=== PATIENT | male | born 1965 | race Caucasian/White ===

== ENCOUNTER 2020-12-11 07:20 | Emergency (ER) | payer OTHER, SELFPAY ==
--- NOTE | ~2020-12-11 | US_ITS ---
EXAMINATION: US SCROTUM CLINICAL INFORMATION: Left-sided pain and swelling. COMPARISON: Scrotal ultrasound on 05/23/2020. TECHNIQUE: A sonogram of the scrotum was performed assessing bill-scale appearance and color Doppler flow. Spectral Doppler analysis of the arterial and venous flow were performed in the testes bilaterally. FINDINGS: RIGHT TESTICLE: Size: 3.7 x 1.7 x 2.1 cm, volume 6.7 mL. Testicular Echotexture: Homogeneous. Focal parenchymal lesions: None. Doppler analysis: Normal. Epididymis: There is a small epididymal head cyst measuring 4 mm. The epididymis is otherwise normal appearing. Hydrocele: None. Varicocele: None. LEFT TESTICLE: Size: 3.3 x 2.0 x 2.2 cm, volume 7.4 mL. Testicular Echotexture: Homogeneous. Focal parenchymal lesions: None. Doppler analysis: Normal. Epididymis: There is a small epididymal head cyst measuring 4 mm. The epididymal tail appears enlarged, heterogeneous and hypervascular suggesting inflammation. Hydrocele: Moderate recurrent hydrocele. Varicocele: None. US/US scrotum IMPRESSION: There is heterogeneous enlargement and hypervascularity of the left epididymal tail concerning for epididymitis. Moderate left hydrocele. Findings discussed with Dr. Barlow via telephone at 9:05 AM on 12/11/2020.
[2020-12-11 07:22] VITALS: BP 157/85; PULSE 77; RESP 16; TEMP 36.6; O2SAT 97; BMI 30.4
--- NOTE | 2020-12-11 07:33 | ED_ITS ---
HPI - Male Genitourinary General Chief complaint: Abdominal Pain Stated complaint: GROIN PAIN WORK RELATED Time Seen by Provider: 12/11/20 07:27 Source: patient Mode of arrival: ambulatory Limitations: no limitations History of Present Illness HPI Narrative: 55 yo male with no sig PMH other than work related injury resulting in large left hydrocele - was repaired in August by a Dr. Kimbrough but notes the area still swells and now it radiates up to his abdomen and left leg at times, worse with standing, states Dr. Kimbrough is retiring. He has had a CT scan as well in the past showing no hernia. MD Complaint: testicle pain and testicle swelling Onset (ago): month(s) Duration: intermittent and progressively worsening Location: left testicle Severity: moderate Quality: aching Relieving factors: none Exacerbating factors: palpation and movement Context: recent surgery Associated symptoms: Reports other (pain spreads to abdomen and leg) Related Data Previous Rx's Medication Instructions Recorded hydrocodone-acetaminophen 1 tab PO Q6H PRN #12 tab 12/11/20 levofloxacin 500 mg PO DAILY 7 Days #7 tab 12/11/20 Allergies Allergy/AdvReac Type Severity Reaction Status Date / Time No Known Allergies Allergy Unverified 03/03/20 15:17 [No Known Allergies*] Review of Systems Review of Systems: Constitutional : No Weight loss, No Fever, No Chills ENT/Mouth : No sore throat, No Rhinorrhea Eyes: No Swelling, No Redness Cardiovascular : No Chest Pain, No SOB, NoEdema Respiratory : No Cough, No Sputum, No Wheezing Gastrointestinal : no Nausea, no Vomiting, positive Diarrhea, positive abdominal Pain, No Hematochezia, No Melena Genitourinary : No Dysuria, No Urinary Frequency, No Hematuria, No Urgency , pos groin pain Musculoskeletal : No joint pain, No Myalgias, No Joint Swelling Skin : No Skin Lesions, No rash Neuro : No Weakness, No Numbness, No Dizziness, No Headache Psych : No Anxiety/Panic, No Depression Heme/Lymph: No Bruising, No Lymphadenopathy Endocrine : No Polyuria, No Polydipsia All other systems reviewed and are negative. [facility]LY [facility] Past Medical History Attestation statement: The following information was validated with the patient. Medical History (Updated 12/11/20 @ 09:02 by Wilma Barlow DO) No significant past medical history Social History Social History (Updated 12/11/20 @ 07:43 by Wilma Barlow DO) Alcohol intake: never Patient Tobacco Use Status: Never used Tobacco Use of substances other than those prescribed or required for medical reasons: No Advance Directives: No Advance Directives Information Provided: No Physical Exam Vital Signs: Vital Signs: Last Vital Signs Temp 98 F 12/11/20 07:22 Pulse 77 12/11/20 07:22 Resp 16 12/11/20 07:22 BP 157/85 H 12/11/20 07:22 Pulse Ox 97 12/11/20 07:22 Body Mass Index 30.4 Appearance: Alert. Oriented X3. No acute distress. Eyes: Pupils equal, round and reactive to light. ENT: Pharynx normal. Neck: Normal inspection. Neck supple. CVS: Normal heart rate and rhythm. Pulses normal. Respiratory: No respiratory distress. Breath sounds normal. Abdomen: Soft and nontender. : when laying flat no obvious swelling/discoloration, when standing L sided scrotum becomes more swollen, no hernia defect noted Skin: Skin warm and dry. Normal skin color. Normal skin turgor. Extremities: No lower extremity edema. No calf ttp Neuro: Oriented X 3. No motor deficit. No sensory deficit. Course Course Course Narrative: call from Radiology 857am - scrotal US recurrent L hydrocele ?heterogeneous enlargement of epidydimitis ? recurrent hydrocele, will refer to Urology start on levofloxacin pain medications MDM - Male Genitourinary MDM Narrative Medical decision making narrative: 55 yo male with no sig PMH other than work related injury resulting in large left hydrocele - was repaired in August by a Dr. Kimbrough but notes the area still swells and now it radiates up to his abdomen and left leg at times, worse with standing, states Dr. Kimbrough is retiring. He has had a CT scan as well in the past showing no hernia. At this time will obtain US to evaluate area - unsure if this is recurrent hydrocele vs hernia - s ymptoms x 3 months Discharge Plan Discharge Clinical Impression: Acute hydrocele, Epididymitis Patient Disposition: Home, Self-Care Instructions: Epididymitis (ED), Hydrocele (ED) Additional Instructions: return to ED for any worsening symptoms or concerns Prescriptions: New hydrocodone-acetaminophen 5-325 mg tablet 1 tab PO Q6H PRN (Reason: pain) Qty: 12 RF: 0 levofloxacin 500 mg tablet 500 mg PO DAILY 7 Days Qty: 7 RF: 0 Referrals: Eligio Nieves MD [Physician] - 2 days (call for appointment) Stand Alone Forms: Work/School Release
== END 2020-12-11 09:08 | disposition home or self-care (01) ==
PROVIDERS: Emergency Provider Emergency Medicine
DX: N43.3 Hydrocele, unspecified (principal); N45.1 Epididymitis
CPT/HCPCS: 76870; 99284

== ENCOUNTER → 2020-12-20 10:44 | Outpatient (BNVA) | payer OTHER, SELFPAY | PROVIDERS: Visit Provider Urology | DX: N45.1 Epididymitis (principal); S39.91XA Unspecified injury of abdomen, initial encounter | CPT/HCPCS: 99202 ==

== ENCOUNTER → 2021-01-27 10:08 | Outpatient (BNVA) | payer OTHER, SELFPAY | PROVIDERS: Visit Provider Urology | DX: N43.3 Hydrocele, unspecified (principal); S39.91XA Unspecified injury of abdomen, initial encounter; X58.XXXA Exposure to other specified factors, initial encounter; Y93.9 Activity, unspecified; Y92.9 Unspecified place or not applicable; Y99.8 Other external cause status | CPT/HCPCS: 20552; 99212 ==

== ENCOUNTER → 2021-02-28 10:32 | Outpatient (BNVA) | payer OTHER, SELFPAY | PROVIDERS: Visit Provider Urology | DX: S39.91XD Unspecified injury of abdomen, subsequent encounter (principal) | CPT/HCPCS: 99212 ==

== ENCOUNTER 2021-04-20 10:00 | Outpatient (RCR) | payer OTHER, SELFPAY ==
--- NOTE | 2021-02-13 15:05 | MHC.PT.EP ---
[facility] [place] [facility] [place] [facility] [place] [facility] [address] Deandra Lozano [address] [phone] F: [phone] F: [phone] F: [phone] F: [phone] Physical Therapy Plan of Care Date of Evaluation: Date of Surgery: Diagnosis: unspecified abdominal injury. Assessment: The patient arrived reporting scrotal pain and groin pain that began after a work related injury. The patient has pain with AROM of the groin, IR, ER. He has functional limitations with stairs, squatting, bending, and lifting due to pain. He had no pain to contract his pelvic floor. He denies any Bowel or bladder disturbance. He has no pain with sexual function/activity. He is showing signs of possible nerve related pain whether it is the obturator nerve or pudendal nerve. He had some pain provocation with pressure at the proximal adductor alirio attachment. I issued a few neural glides and he was given a few gentle stretches. At this time internal assessment of his pelvic floor is not indicated. He is a good candidate for skilled Physical Therapy. Frequency and Duration: The patient will be seen 2x/week x 4 weeks. Short Term Goals: 1. pt to be able to resume bed mobility, and personal hygiene tasks without pain with modifications as necessary. 2. pt to know his initial HEP to help with carryover and compliance. Director Public Goals: 1. Pt to be able to resume all functional activities without limiting pain with modifications as necessary. 2. Pt to be able to be independent with HEP to address his pain and impairments. 3. pt to be able to walk community distances without limiting pain. Treatment Plan: Modalities to reduce pain, spasms and effusion. Manual therapy to restore motion and function. Therapeutic exercise to improve strength and flexibility. Neuromuscular re-education for posture and balance. Therapeutic activities to return to functional activities of daily living. Electronically signed by: Daria Mackay PT DPT Please sign and return to therapist. Thank you for your referral.
--- NOTE | 2021-04-20 15:37 | MHC.PT.DC ---
[facility] [place] [facility] [place] [facility] [place] [facility] [address] Deandra Lozano [address] [phone] F: [phone] F: [phone] F: [phone] F: [phone] Physical Therapy Discharge Report Diagnosis: unspecified abdominal injury. Date of Surgery: Date of Evaluation: 02/13/21 Date of Discharge: 04/20/21 Treatments to Date: 6 Cancellations to Date: No Shows to Date: Discharge Status: Independent with HEP Recommend MD Follow-up Discharge Summary: At this point skilled PT is not helping the patient. I requested and received an office visit note from Dr. Benson Berrios a surgeon from [facility] in [facility]. He explained he has an inguinal hernia on the left side, and he will be following up with him at this point. He is being d/c from skilled PT at this time. He was educated on ways to reduce strain on the abdomen such as log rolling, breathing out with bending. Avoidance of lifting, reaching, twisting. Pt was discharged from skilled PT at this point. He may return with a new order at a later time based on the treatment he receives. Electronically signed by: Daria Mackay PT DPT Please sign and return to therapist. Thank you for your referral.
== END 2021-04-20 15:34 | disposition home or self-care (01) ==
LOC: HO.PT 10:00
PROVIDERS: Visit Provider Urology
DX: S39.91XD Unspecified injury of abdomen, subsequent encounter (principal)
CPT/HCPCS: 97033; 97035; 97110; 97112; 97116; 97140; 97162

== ENCOUNTER 2021-11-02 08:00 | Outpatient (RCR) | payer OTHER, SELFPAY | END 2022-01-19 14:50 | disposition home or self-care (01) | LOC: HO.PT 08:00 | PROVIDERS: PCP Pediatrics; Visit Provider Nurse Practitioner | DX: K40.30 Unilateral inguinal hernia, with obstruction, without gangrene, not specified as recurrent (principal) | CPT/HCPCS: 97110; 97112; 97116; 97140; 97162; 97530 ==

== ENCOUNTER 2022-02-24 05:29 | Emergency (ER) | payer MEDICAID, SELFPAY ==
[2022-02-24 06:14] VITALS: BP 143/72; PULSE 78; RESP 14; TEMP 36.4; O2SAT 99; BMI 33.0
--- NOTE | 2022-02-24 07:57 | ED_ITS ---
HPI - General Adult General Chief complaint: Skin/Abscess/Foreign Body Stated complaint: left eye swollen, rash Time Seen by Provider: 02/24/22 07:50 Source: patient Mode of arrival: ambulatory Limitations: no limitations History of Present Illness HPI narrative: 56-year-old male otherwise healthy came in for having left ear pain, left facial pain, swelling of the left eyelid and rash for over a week. Started with left ear pain then feeling burning and itching sensation on the left side of his scalp and upper face now is involving his left upper eyelid, patient declined any history of diabetes her recent use of steroid, no exposure to a sick contact. Related Data Previous Rx's Medication Instructions Recorded hydrocodone 5 mg-acetaminophen 325 1 tab PO Q6H PRN pain #12 tabs 12/11/20 mg tablet levofloxacin 500 mg tablet 500 mg PO DAILY 7 days #7 tabs 12/11/20 naproxen 500 mg tablet (Naprosyn) 500 mg PO Q12H PRN pain 30 days 12/20/20 #60 tabs prednisone 20 mg tablet 20 mg PO BID #10 tabs 02/24/22 valacyclovir 1 gram tablet 1,000 mg PO TID #7 tabs 02/24/22 (Valtrex) Allergies Allergy/AdvReac Type Severity Reaction Status Date / Time No Known Allergies Allergy Verified 02/28/21 10:49 [No Known Allergies*] Review of Systems Review of Systems: All other systems are reviewed and are negative Constitutional: Reports as per HPI and Reports no additional constitutional complaints Eyes: Reports as per HPI and Reports no additional eye complaints Reports system reviewed and no additional complaints, except as documented Cardiovascular: Reports as per HPI and Reports no additional cardiovascular complaints Respiratory: Reports as per HPI and Reports no additional respiratory complaints Gastrointestinal: Reports as per HPI and Reports no additional gastrointestinal complaints Genitourinary: Reports no additional female genitourinary complaints Musculoskeletal: Reports no additional musculoskeletal complaints Skin/Breast: Reports system reviewed and no additional complaints, except as docu Psychiatric: Reports no additional psychiatric complaints Endocrine: Reports no additional endocrine complaints Hematologic/Lymphatic: Reports no additional hematologic/lymphatic complaints Allergic/Immunologic: Reports no additional allergic/immunologic complaints Reports system reviewed and no additional complaints, except as documented and Reports Abnormal speech present [facility] Past Medical History Medical History No significant past medical history Social History Social History Alcohol intake: never Patient Tobacco Use Status: Never used Tobacco Advance Directives: No Advance Directives Information Provided: No Physical Exam ED Vital Signs: Vital Signs - 24 hr 02/24/22 06:14 Temperature 97.6 F Pulse Rate 78 Respiratory Rate 14 Blood Pressure 143/72 H Pulse Oximetry 99 Oxygen Delivery Method Room Air BMI result Body Mass Index 33.0 Vital signs have been reviewed as appeared to be correct. Blood pressure normal. Heart rate normal. Respiration rate normal. Temperature normal. Oxygen saturation normal. Appearance: Alert. Oriented X3. No acute distress. Head and face: A few maculopapular rash on erythematous base on the left side of the scalp involving the left side of the forehead and upper eyelid, no vesicular lesions, 1 maculopapular lesion in left external ear canal. Normal external exam. Normocephalic. Atraumatic. No Miller signs noted. No raccoon eyes noted Eyes: PERRLA. EOMI. Conjunctiva and sclera normal. Eyelids normal. No corneal fluorescein uptake, no visual acuity 20/15 bilaterally. ENT: TM's Normal. Pharynx normal. Uvula midline. Moist mucous membranes. No trismus noted. No drooling noted. No muffled voice noted. Neck: Normal inspection. Neck supple. FROM. No adenopathy. Thyroid Normal. No meningeal signs. No neck mass noted. CVS: Normal heart rate and rhythm. Heart sound normal. No murmurs noted. Pulses normal throughout. Respiratory: No respiratory distress. Painless inspiration. Breath sounds normal. No wheezes/rales/rhonchi noted. Chest nontender. No accessory muscle usage noted or decreased air movement noted. Abdomen: Soft and nontender. Bowel sounds normal in all 4 quadrants. No distention noted. No organomegaly noted. No visible injury noted. Back: No CVA tenderness. Full range of motion noted. Skin: Skin warm and dry. Normal skin color. Normal skin turgor. No rashes/lesions/lacerations noted. Extremities: No lower extremity edema. Extremities exhibit normal range of motion. Extremities nontender. Neuro: Oriented X 3. Cranial nerve exam: II-XII are grossly intact No motor deficit. No sensory deficit. Reflexes normal. Course Course Course Narrative: 56-year-old male with no past medical history presented with herpes zoster infection on the left side of face and left ear, no corneal ulceration or eye involvement except for the left upper eyelids. Start the patient on short course of prednisone and Valtrex for 7 days. might benefit the patient for itching and pain and have the patient follow-up with event marketing representative. Has no symptoms for diabetes p.o. Ca is 84 in the ED Medical Decision Making Lab Data Labs: Lab Results 02/24/22 Range/Units 08:59 POC Glucose 84 (60-115) mg/dL Discharge Plan Discharge Clinical Impression: Herpes zoster dermatitis, Herpes zoster dermatitis of eyelid Patient Disposition: Home, Self-Care Instructions: Shingles (ED) Additional Instructions: Do not itch then rub your eye, frequently wash her hand, seek medical attention eye pain for light bothering her eyes. Prescriptions: New prednisone 20 mg tablet 20 mg PO BID Qty: 10 0RF valacyclovir [Valtrex] 1 gram tablet 1,000 mg PO TID Qty: 7 0RF No Action hydrocodone-acetaminophen 5-325 mg tablet 1 tab PO Q6H PRN (Reason: pain) Qty: 12 0RF levofloxacin 500 mg tablet 500 mg PO DAILY 7 Days Qty: 7 0RF naproxen [Naprosyn] 500 mg tablet 500 mg PO Q12H PRN (Reason: pain) 30 Days Qty: 60 0RF Referrals: Perry Reid [Physician] -
[2022-02-24] MEDS: Fluorescein Sodium STRIP 1 STRIP EYE-LEFT (08:12)
[2022-02-24] MEDS: Tetracaine HCl/PF 0.5% Oph Sol 4 ML DROPS 1 DROP EYE-LEFT (08:12)
[2022-02-24 09:04] LABS: Glucose, Whole Blood 84 mg/dL (60-115)
--- NOTE | 2022-02-24 09:09 | PC.NURSE ---
@[id number] DR TUSHAR MOORE CALLED [phone] @ DR VERONICA REQUEST ANSWERING SERVICE TAKES PT INFO AND STATES SHE WILL HAVE THE PROMOTION MANAGER DR Costa SCHNEIDER CALL HIM BACK
== END 2022-02-24 09:37 | disposition home or self-care (01) ==
PROVIDERS: Emergency Provider Emergency Medicine
DX: B02.39 Other herpes zoster eye disease (principal); H92.02 Otalgia, left ear
CPT/HCPCS: 82947; 99283

== ENCOUNTER 2022-03-12 11:58 | Emergency (ER) | payer MEDICAID, SELFPAY ==
--- NOTE | ~2022-03-12 | XR_ITS ---
EXAMINATION: XR HAND, LEFT CLINICAL INFORMATION: Foreign body evaluation COMPARISON: None TECHNIQUE: PA, lateral, and oblique views of the left hand. FINDINGS: There is a tiny 1 mm radiopaque foreign body overlying the dorsal aspect of the fourth digit at the level of the PIP joint. There is skin deformity noted however no fracture or dislocation or osseous destructive process. XR/XR hand LT min 3V IMPRESSION: Radiopaque foreign body as described.
--- NOTE | 2022-03-12 12:02 | ED.GENADULT ---
HPI - General Adult General Chief complaint: Wound/Laceration Stated complaint: Lac & Crushed Fingers Time Seen by Provider: 03/12/22 12:02 Source: patient Mode of arrival: ambulatory Limitations: no limitations History of Present Illness HPI narrative: Patient is a 56 year old male presenting to the emergency department today with a left hand injury. Patient states that he got his left hand caught between a trailer hitch and the bumper of his car. Patient states that he immediately wrapped his hand up and ever since he wrapped it, his ring and pinky finger have felt more numb and cold. Patient denies any dizziness, lightheadedness, abdominal pain, nausea, vomiting, fever, chills, blurry vision, double vision, loss of vision, chest pain, difficulty breathing, shortness of breath, back pain, night sweats, pain with urination, increased urinary frequency, increased urinary urgency, blood in his urine or stool, syncope or a near syncopal episode, bowel incontinence, bladder incontinence, bowel retention, bladder retention, or any other complaints at this time. Onset (ago): minute(s) Location: left and upper extremity (hand) Radiation: non-radiation Severity: moderate Severity scale (1-10): 5 Quality: aching and dull Pain Consistency: constant Relieving factors: none Exacerbating factors: movement Associated symptoms: denies other symptoms Treatments prior to arrival: none Related Data Previous Rx's Medication Instructions Recorded hydrocodone 5 mg-acetaminophen 325 1 tab PO Q6H PRN pain #12 tabs 12/11/20 mg tablet levofloxacin 500 mg tablet 500 mg PO DAILY 7 days #7 tabs 12/11/20 naproxen 500 mg tablet (Naprosyn) 500 mg PO Q12H PRN pain 30 days 12/20/20 #60 tabs prednisone 20 mg tablet 20 mg PO BID #10 tabs 02/24/22 valacyclovir 1 gram tablet 1,000 mg PO TID #7 tabs 02/24/22 (Valtrex) cephalexin 500 mg capsule 500 mg PO Q6H 7 days #28 caps 03/12/22 Allergies Allergy/AdvReac Type Severity Reaction Status Date / Time No Known Allergies Allergy Verified 02/28/21 10:49 [No Known Allergies*] Review of Systems Constitutional: Constitutional: Reports no additional constitutional complaints, Denies chills, Denies fever(s) and Denies night sweats Eyes: Eyes: Reports no additional eye complaints, Denies blurry vision, Denies change in vision, Denies diplopia, Denies eye discharge, Denies loss of vision and Denies eye pain ENT: Denies dizziness Cardiovascular: Cardiovascular: Reports no additional cardiovascular complaints, Denies chest pain, Denies lightheadedness, Denies Loss of Consciousness and Denies dyspnea Respiratory: Respiratory: Reports no additional respiratory complaints and Denies dyspnea Gastrointestinal: Gastrointestinal: Reports no additional gastrointestinal complaints, Denies abdominal pain, Denies melena, Denies hematochezia, Denies change in bowel habits and Denies change in stool character Genitourinary: Genitourinary: Reports no additional male genitourinary complaints, Denies hematuria, Denies oliguria, Denies difficulty urinating, Denies dysuria, Denies urinary frequency, Denies urinary hesitancy, Denies urinary incontinence and Denies urinary urgency Musculoskeletal: Musculoskeletal: Reports no additional musculoskeletal complaints, Denies numbness and Denies tingling Comments: left hand injury Neurologic: Denies dizziness, Denies loss of vision, Denies numbness and Denies tingling Psychiatric: Psychiatric: Reports no additional psychiatric complaints Endocrine: Endocrine: Reports no additional endocrine complaints Hematologic/Lymphatic: Hematologic/Lymphatic: Reports no additional hematologic/lymphatic complaints Allergic/Immunologic: Allergic/Immunologic: Reports no additional allergic/immunologic complaints PMFSH Past Medical History Attestation statement: The following information was validated with the patient. Source: old records reviewed Medical History No significant past medical history Social History Social History Alcohol intake: never Patient Tobacco Use Status: Never used Tobacco Physical Exam ED Vital Signs: Vital Signs - 24 hr 03/12/22 12:20 Temperature 98.5 F Pulse Rate 89 Respiratory Rate 16 Blood Pressure 138/70 Pulse Oximetry 96 Oxygen Delivery Method Room Air BMI result Body Mass Index 29.2 Const General: cooperative, no acute distress, alert and awake Nutritional Appearance: well nourished Orientation/consciousness: patient oriented x3 Limitations: no limitations HENMT Head: Yes normal to inspection and Yes atraumatic Ears: hearing grossly normal bilaterally and external ears normal General nose exam: Normal external nose present, no nasal discharge noted and no epistaxis Face and sinus: Yes normal facial exam, No abrasion and No laceration Mouth: Normal oral and palatal mucosa present, no drooling and no muffled voice Eyes General: appearance normal, both eyes and all related structures Periorbital: periorbital findings normal Eyelids: Yes eyelids normal Conjunctivae: conjunctivae normal Pupils: Equal, round and reactive pupils present EOM: EOMs intact bilaterally Neck Neck: Yes normal visual inspection, Yes full ROM and Yes no lymphadenopathy Chest Chest palpation & inspection: normal inspection of the chest Resp Effort & Inspection: normal respiratory effort and able to speak in complete sentences Auscultation: clear to auscultation bilaterally Cardio Rate: regular rate Rhythm: regular rhythm GI Inspection: Yes normal to inspection Neuro General: patient oriented x3 and moves all extremities Cranial nerves: Yes Equal, round and reactive pupils present Cognition (Neuro): normal cognition Motor exam (neuro): 5/5 motor strength present throughout Sensory Exam: Normal double simultaneous stimulation for sensation Coordination: [id number] test normal Extrem Other: large laceration to the left hand extending from the mid ulnar palm and extending distaly and across the dorsal aspect of the left index finger just inferior to the PIP joint General: Yes full ROM and Yes capillary refill normal Hand/finger images: 1. laceration 2. laceration Psych Appearance: grossly normal Mental Status: mental status grossly normal Affect: normal affect Attitude: cooperative Thought process: Normal thought process present Thought content: Normal thought content present Insight: Good insight present (Psych) Procedures Laceration Laceration 1: Site: hand Side (If applicable): left Size (cm): 10 Description: irregular Depth: simple, single layer Local Anesthetic: lidocaine 1% Amount of anesthesia used (mL): 10 Pre-repair: wound explored and irrigated extensively Skin layer closed with: other (prolene) Size (cm): 4-0 Number of sutures: 19 Technique: simple, interrupted Subcutaneous layer closed with: chromic gut Size: 5-0 Number of sutures: 1 Technique: simple, interrupted Medical Decision Making [facility] Narrative Medical decision making narrative: Patient is a 56 year old male presenting to the emergency department today with a left hand laceration. Patient's physical exam as documented earlier in this chart. Patient's left hand x-ray showed a 1mm radiopaque foreign body overlying the dorsal aspect of the 4th digit at the level of the PIP joint. I explained my physical exam findings as well as all test results to the patient. I answered all questions asked by the patient. Patient's laceration was repaired, per procedure note, without incident. I stressed the importance of the patient taking his medication as prescribed. I stressed the importance of the patient following up with his primary care provider and a hand specialist. I stressed the importance of the patient returning to the emergency department immediately if his symptoms were to worsen or if he were to develop any dizziness, shortness of breath, difficulty breathing, chest pain, blurry vision, loss of vision, nausea, vomiting, abdominal pain, fever, chills, back pain, or any other complaints. Patient verbalized agreement and understanding with this treatment plan and discharge. Medical Records Medical records reviewed: Yes I reviewed the patient's medical records. Imaging Data Left hand x-ray: Attestation: I personally reviewed and interpreted this imaging study as follows: My impression: 1 mm radiopaque foreign body overlying the dorsal aspect of the fourth digit Radiologist's impression: EXAMINATION: XR HAND, LEFT CLINICAL INFORMATION: Foreign body evaluation? COMPARISON: None? TECHNIQUE: PA, lateral, and oblique views of the left hand. FINDINGS: There is a tiny 1 mm radiopaque foreign body overlying the dorsal aspect of the fourth digit at the level of the PIP joint. There is skin deformity noted however no fracture or dislocation or osseous destructive process.? XR/XR hand LT min 3V IMPRESSION: Radiopaque foreign body as described. Dictated By: Braxton Hazel MD Signed By: Electronically signed by Braxton Hazel MD 03/12/22 6710 Discharge Plan Discharge Clinical Impression: Laceration Patient Disposition: Home, Self-Care Instructions: Care For Your Stitches (ED), Care For Your Absorbable Stitches (ED) Additional Instructions: Do NOT soak the sutured area. Have your sutures removed in 10-14 days. Perform daily wound checks and daily dressing changes. Follow up with your primary care provider and a hand specialist. Return to the emergency department immediately if your symptoms worsen or if you develop any numbness, tingling, decreased use of the left hand or fingers, dizziness, shortness of breath, difficulty breathing, chest pain, blurry vision, loss of vision, nausea, vomiting, abdominal pain, fever, chills, back pain, or any other complaints. Prescriptions: New cephalexin 500 mg capsule 500 mg PO Q6H 7 Days Qty: 28 0RF No Action hydrocodone-acetaminophen 5-325 mg tablet 1 tab PO Q6H PRN (Reason: pain) Qty: 12 0RF levofloxacin 500 mg tablet 500 mg PO DAILY 7 Days Qty: 7 0RF prednisone 20 mg tablet 20 mg PO BID Qty: 10 0RF valacyclovir [Valtrex] 1 gram tablet 1,000 mg PO TID Qty: 7 0RF naproxen [Naprosyn] 500 mg tablet 500 mg PO Q12H PRN (Reason: pain) 30 Days Qty: 60 0RF Referrals: [facility] [place] [facility] [Provider Group] Kelly Kidd MD [Primary Care Provider] - Interventions: ED Discharge Assessment Last Done: 03/12/22 14:57 Discharge Date/Time: 03/12/22 14:59 Print Language: Citizen [place]
[2022-03-12 12:20] VITALS: BP 138/70; PULSE 89; RESP 16; TEMP 36.9; O2SAT 96; BMI 29.2
[2022-03-12] MEDS: HYDROcodone Bit/Acetam 5/325 TABLET 1 TAB PO (12:32)
[2022-03-12] MEDS: cephALEXin 500 MG CAPSULE PO (12:32)
[2022-03-12] MEDS: Diphth,Pertus(ACell),Tet Adult 0.5 ML SYRINGE IM (12:33)
--- NOTE | 2022-03-12 14:56 | PC.NURSE ---
pt pwd at discharge. pt son at bedside. pt ambulatory at discharge. pt given discharge packet at time of discharge. pt verbalized understanding of discharge instructions. instructed pt on importance of follow up with ortho specialist.
== END 2022-03-12 14:59 | disposition home or self-care (01) ==
PROVIDERS: Emergency Provider Emergency Medicine; PCP Internal Medicine
DX: S61.412A Laceration without foreign body of left hand, initial encounter (principal); W23.1XXA Caught, crushed, jammed, or pinched between stationary objects, initial encounter; Y93.89 Activity, other specified; Y92.9 Unspecified place or not applicable; Y99.9 Unspecified external cause status
CPT/HCPCS: 12045; 73130; 90471; 90715; 99284

== ENCOUNTER → 2022-03-21 10:32 | Outpatient (BNVA) | payer MEDICAID, SELFPAY | PROVIDERS: PCP Internal Medicine; Visit Provider Physician Assistant | DX: S67.22XA Crushing injury of left hand, initial encounter (principal) | CPT/HCPCS: 99202 ==

== ENCOUNTER → 2022-03-28 12:27 | Outpatient (BNVA) | payer MEDICAID, SELFPAY | PROVIDERS: PCP Internal Medicine; Visit Provider Physician Assistant | DX: Z48.1 Encounter for planned postprocedural wound closure (principal); Z87.2 Personal history of diseases of the skin and subcutaneous tissue | CPT/HCPCS: 99212 ==